=== PATIENT | male | born 1970 | race African-American/Black ===

== ENCOUNTER 2017-03-19 17:36 | Observation (INO) | payer MEDICARE ==
[2017-03-19] MEDS ORDERED: traMADol HCl 50 MG TAB PO PRN (18:24)
[2017-03-19] MEDS ORDERED: Sodium Chloride 0.9% 1,000 ML IV SCH (18:30)
[2017-03-19] MEDS ORDERED: GoLYTELY 4,000 ml Bottle PO SCH (18:30)
[2017-03-19 18:46] VITALS: BMI 33.8
[2017-03-19 19:09] LABS: #Eosinphils 0.2 thou/uL (0.0-0.7); #Lymphocytes 1.9 thou/uL (1.20-3.40); #Monocytes 0.4 thou/uL (0.11-0.59); #Neutrophils 3.6 thou/uL (1.40-6.50); %Basophils 0.6 % (0.0-1.0); %Eosinophils 3.2 % (0.0-10.0); %Lymphocytes 31.5 % (21.0-51.0); %Monocytes 5.9 % (0.0-10.0); %Neutrophils 58.8 % (42.0-75.0); Hemoglobin 12.9 g/dL (14.0-18.0); Mean Corpuscular HGB CONC 32.7 g/dL (32.0-36.0); Mean Corpuscular Hemoglobin 26.7 pg (27.0-31.0); Mean Corpuscular Volume 81.9 fl (80.0-94.0); Mean Platelet Volume 6.6 fL (7.4-10.4); Platelet Count 273 thou/uL (130-400); RBC Distribution Width 13.1 % (11.5-14.5); Red Blood Cell (RBC) Count 4.81 mill/uL (4.70-6.10); White Blood Cell (WBC) Count 6.2 thou/uL (4.8-10.8)
[2017-03-19 19:30] LABS: ALT (SGPT) 22 U/L (8-55); AST (SGOT) 17 U/L (5-34); Albumin 4.1 g/dL (3.5-5.0); Alkaline Phosphatase 101 U/L (40-150); Anion Gap 13 mmol/L (10-20); BUN (Urea Nitrogen) 15 mg/dL (8.9-20.6); Bilirubin, Total 0.4 mg/dL (0.2-1.2); Calc. Creatinine Clearance 128 mL/min (70-130); Calcium 9.5 mg/dL (7.8-10.44); Carbon Dioxide 25 mmol/L (22-29); Chloride 104 mmol/L (98-107); Estimated GFR-MDRD 79; Globulin 3.5 g/dL (2.4-3.5); Glucose 114 mg/dL (70-105); Potassium 4.1 mmol/L (3.5-5.1); Protein, Total 7.6 g/dL (6.0-8.3); Sodium 138 mmol/L (136-145)
[2017-03-19] MEDS: Sodium Chloride 0.45% 1,000 ML IV SCH (20:58)
[2017-03-19] MEDS ORDERED: Allopurinol 100 MG TAB PO SCH (21:00)
[2017-03-19] MEDS ORDERED: Chlorthalidone 25 MG TAB PO SCH (21:00)
[2017-03-19] MEDS ORDERED: Atorvastatin Calcium 40 MG TAB PO SCH (21:00)
--- NOTE | 2017-03-19 23:01 | HP ---
DATE OF CONSULTATION: 03/19/2017 CHIEF COMPLAINT: GI bleed. HISTORY OF PRESENT ILLNESS: This is a 47-year-old -[place] male with a known recent history of colonoscopy by Dr. De Jesus wherein he had 3 polyps removed and this was on . Following this, the patient started back on his aspirin 81 mg and he started noticing that he was having some blood in the stool, bright red blood, sometimes with clots. So, he went to Dr. Tena's office today and he was directly admitted to the hospital for colonoscopy in the morning. The patient denied having any chest pain. No nausea, no vomiting, no diarrhea, no constipation. His bleeding has slowed down, bu t is still in the clots. The patient had a hemoglobin of 12.9 today. The patient has a known histor y of type 2 diabetes mellitus and hypertension, which are well controlled. He was also diagnosed wit h congestive heart failure according to him, but no specific out of blood at this time. He had no hi story of stents placed recently. The patient had no recent hospitalizations. PAST MEDICAL HISTORY: 1. Type 2 diabetes mellitus. 2. Hypertension. 3. History of congestive heart failure, which the records are not available at this time. PAST SURGICAL HISTORY: Has bunionectomy on his right lower feet and has a recent colonoscopy with 3 polyps removed. SOCIAL HISTORY: The patient is not a known smoker. No history of alcohol, no history of illicit tracie g use. FAMILY HISTORY: Patient has significant family history of coronary artery disease in his brothers. Both the brothers at the age of 50s with coronary artery disease and also had a sister who recently. ALLERGIES: No known drug allergies. HOME MEDICATIONS: Home medications have been reconciled and reviewed. Please see the medication lis t. REVIEW OF SYSTEMS: All 12 systems are reviewed with the patient thoroughly and found to be negative at this time except the ones described in the HPI. Constitutional: Weight loss or gain, sense of well-being, ability to conduct usual activities, exerc ise tolerance. Skin/Breast: Rash, itching, changes in hair growth or loss, nail changes, breast lumps, tenderness, swelling, nipple discharge. Eyes: Vision, double vision, tearing, blind spots, pain. ENT/Mouth: Headaches (location, time of onset, duration, precipitating factors), vertigo, lightheade dness, injury. Vision, double vision, tearing, blind spots, pain, nose bleeding, colds, obstruction, discharge, dental difficulties, gingival bleeding, dentures, neck stiffness, pain, tenderness, masses in thyroid or other areas Cardiovascular: Precordial pain, substernal distress, palpitations, syncope, dyspnea on exertion, or thopnea, nocturnal paroxysmal dyspnea, edema, cyanosis, hypertension, heart murmurs, varicosities, ph lebitis, claudication. Respiratory: Pain, shortness of breath, wheezing, stridor, cough, hemoptysis, fever or night sweats. Gastrointestinal: Poor appetite, dysphagia, indigestion, abdominal pain, heartburn, eructation, naus ea, vomiting, hematemesis, jaundice, constipation, or diarrhea, abnormal stools (yaneli-colored, tarry, bloody, greasy, foul smelling), flatulence, hemorrhoids, recent changes in bowel habits. Genitourinary: Urgency, frequency, dysuria, nocturia, hematuria, polyuria, oliguria, unusual (or blaire nge in) color of urine, stones, hesitancy, change in size of stream, dribbling, acute retention or in continence, libido, potency. Musculoskeletal: Pain, swelling, redness or heat of muscles or joints, limitation, of motion, muscul ar weakness, atrophy, cramps. Neurologic/Psychiatric: Convulsions, paralyses, tremor, incoordination, paraesthesias, difficulties with memory of speech, sensory or motor disturbances, or muscular coordination (ataxia, tremor), emot ional problems, anxiety, depression, previous psychiatric care, unusual perceptions, hallucinations. Allergy/Immunologic: Skin rash, anemia, bleeding tendency, polydipsia, polyuria, intolerance to heat or cold. PHYSICAL EXAMINATION: VITAL SIGNS: Blood pressures are 127/66, heart rate is 67, respiratory rate is 18 and saturation 100 %. GENERAL: The patient is moderately built, moderately nourished, does not appear to be in acute distr ess. CARDIOVASCULAR: S1 and S2 normal. No murmurs, rubs or gallops. LUNGS: Bilateral air entry was equal. No wheezing, no crackles. ABDOMEN: Soft and nontender. No guarding, no rebound tenderness. Bowel sounds normal. MUSCULOSKELETAL: No calf tenderness. No pedal edema. No joint tenderness, no joint swelling. SKIN: No cyanosis, no edema, no rash, no pallor. NEUROLOGIC: Cranial examination II-XII intact. No focal deficits were noted. LABORATORY DATA: WBC is 6.8, hemoglobin is 12.1 and hematocrit 39.4. Sodium is 138, potassium 4.1, chloride is 104, bicarbonate is 25 and platelets are 273. ASSESSMENT: 1. Acute lower gastrointestinal bleed secondary to recent polypectomy. 2. Type 2 diabetes mellitus, well controlled. 3. Hypertension, well controlled. 4. Anemia, acute blood loss. PLAN: 1. To keep the patient n.p.o. and patient has been scheduled for colonoscopy in the morning by Dr. Tray dillon. We will continue with the recommendations at this time. The patient's bleeding is not severe at this time, but we will closely monitor and will look for a blood transfusion if the hemoglobin stacy ps to less than 8. 2. Patient has a history of congestive heart failure, but there are no records for it at this time a nd has been told by his district associate judge to continue the aspirin. At this time, we will hold aspirin bec ause of the acute bleeding and will have the patient's follow up with his district associate judge to see if the patient would need to be continued on the aspirin. 3. Hypertension is well controlled. We will restart the home medications following the colonoscopy tomorrow. 4. Deep venous thrombosis prophylaxis. I spent 70 minutes with this patient.
--- NOTE | 2017-03-20 03:54 | CON ---
DATE OF CONSULTATION: 03/19/2017 CHIEF COMPLAINT: Blood in the stool. HISTORY OF PRESENT ILLNESS: Mr. Jordan is a 47-year-old man who underwent surveillance colonoscopy an d EGD by Dr. De Jesus on 03/15/2017. He was found to have 3 moderate sized pedunculated and sessile poly ps in the sigmoid and ascending colon. The polyps were removed by snare cautery polypectomy. Divert iculosis was also noted throughout the colon. He underwent the colonoscopy due to a personal history of polyps and family history of polyps. The patient did well following the colonoscopy until 6:00 t his morning. He developed a red liquidy bloody stool. He had 2 more episodes, so he went onto the [facility] ER and at the [facility], he had a CT scan which was reportedly negative. He marie d hemoglobin of 12.8. He was discharged and presented to GI clinic this afternoon. Since then he marie s had 3 more liquidy red bloody stools with total of 6 so far through the day. He has no abdominal p ain, nausea, vomiting or fever. Of note, he did undergo EGD on 03/15/2017 as well for evaluation of mild dysphagia. He underwent esophageal dilation at that time. He was started on Prilosec. PAST MEDICAL HISTORY: Gastroesophageal reflux disease, personal history of colon polyps, diabetes me llitus, depression, arthritis, hypertension, congestive heart failure. PAST SURGICAL HISTORY: EGD and colonoscopy. FAMILY HISTORY: Negative for GI malignancy. SOCIAL HISTORY: No alcohol, tobacco or drugs. He is and has four children. ALLERGIES: No known drug allergies. MEDICATIONS: Carvedilol 25 mg daily, atorvastatin 80 mg at bedtime, allopurinol 100 mg daily, trama dol 50 mg as needed usually once daily, aspirin 81 mg daily, metformin 1000 mg daily. This was held due to CT contrast that he received at [facility] today. Finally, chlorthalidone 25 mg daily . REVIEW OF SYSTEMS: Negative x10 systems reviewed except as stated in the history of present illness. PHYSICAL EXAMINATION: VITAL SIGNS: Temperature 96.4, blood pressure 124/68, pulse 72. GENERAL: He is in no acute distress, alert and oriented x3. HEENT: Eyes have no scleral icterus. Oropharynx is clear, without lesions. NECK: No cervical or supraclavicular lymphadenopathy. LUNGS: Clear to auscultation bilaterally. HEART: Regular rate and rhythm without murmur. ABDOMEN: Soft, nontender, nondistended. Bowel sounds are present. EXTREMITIES: No lower extremity edema. IMPRESSION: 1. Post-polypectomy hemorrhage. PLAN: 1. Colonoscopy tomorrow. We will follow the trend of the hemoglobin. Bowel prep tonight. 2. Please note the metformin is on hold due to CT scan with IV contrast that he received at [facility] ER this morning.
[2017-03-20] MEDS: Sodium Chloride 0.45% 1,000 ML IV SCH ×2 (04:33→14:03)
[2017-03-20] MEDS ORDERED: Carvedilol 25 MG TAB PO SCH (09:00)
[2017-03-20] MEDS ORDERED: Promethazine HCl 25 MG/ML VIAL SLOW IVP PRN (11:35)
[2017-03-20] MEDS ORDERED: Promethazine HCl 25 MG/ML VIAL IM PRN (11:35)
[2017-03-20] MEDS ORDERED: Ondansetron HCl/PF 4 MG/2 ML Vial IVP PRN (11:35)
--- NOTE | 2017-03-20 11:58 | OP ---
DATE OF PROCEDURE: 03/20/2017 SURGEON: Ronald Thorne M.D. PREOPERATIVE DIAGNOSIS: Suspected post-polypectomy bleeding. POSTOPERATIVE DIAGNOSES: Post-polypectomy bleeding with a visible vessel in the right colon. This w as controlled with 1 Hemoclip and bleeding was controlled, no further bleeding was noted afterwards. RECOMMENDATIONS: We will check H&H and advance diet. If stable, will discharge later today. ANESTHESIA: TIVA. PROCEDURE IN DETAIL: After the patient was informed of the risks, benefits, possible complications o f endoscopy including perforation, bleeding, reactions to medication and aspiration, informed consent was obtained. The patient brought to endoscopy suite where he was sedated in gradual fashion. Once he was comfortable, a rectal examination was performed which revealed fresh blood from the rectum. He remained stable for the procedure. The endoscope was advanced through anal canal, through the col on to the cecum. The colon was irrigated and all old blood removed. A bleeding site identified with a visible vessel with adherent clot indicative of recent bleeding. It was felt to be at high risk f or recurrent bleeding and therefore a Hemoclip was placed across the base of the visible vessel and a ll oozing stopped. This was irrigated and watched for some time. The remainder of the colon was irr igated and cleaned and no other bleeding sites were identified. The colon was then reexamined again the polyp site was relocated and no active bleeding was seen. At this point in time I was satisfied that all bleeding had stopped. The colon was desufflated. The scope was removed. The patient terry ated the procedure well with no complications.
[2017-03-20 13:03] LABS: Hemoglobin 10.7 g/dL (14.0-18.0)
[2017-03-20] MEDS ORDERED: PHENYLEPHRINE-NS 100 MCG/ML 10 ML SYRINGE ONE (14:26)
[2017-03-20] MEDS ORDERED: Propofol 200 MG/20 ML VIAL ONE (14:26)
[2017-03-20 15:43] VITALS: BP 117/60; TEMP 99
--- NOTE | 2017-03-21 01:39 | DIS ---
DATE OF ADMISSION: 03/19/2017 DATE OF DISCHARGE: 03/20/2017 CONDITION AT THE TIME OF DISCHARGE: Stable and improved. DISCHARGE DIAGNOSES: 1. Post-polypectomy gastrointestinal hemorrhage. 2. Mild acute blood loss anemia. 3. Diabetes mellitus type 2. 4. Hypertension. 5. History of congestive heart failure. PRIMARY CARE PHYSICIAN: Mat Darke M.D. PRIMARY ASPHALT MIXER: Willi De Jesus M.D. CONSULTATIONS INHOUSE: Include Gastroenterology, Dr. Tena and Dr. Thorne. PROCEDURES DONE IN THE HOSPITAL: Include colonoscopy which showed post-polypectomy bleeding with a v isible vessel in the right colon. This was hemoclipped and the bleeding was controlled without any s ignificant bleeding afterwards. HISTORY OF PRESENT ILLNESS: Mr. Jordan is a very pleasant 47-year-old -Irish male who under went outpatient colonoscopy by Dr. De Jesus and had polyps removed 3 or 4 days prior to presentation. He started back his aspirin after that and noticed some bright red blood in the stools with clot and pr esented to Dr. Tena's office and was directly admitted to the hospital for this varied reason. Upon presentation, his hemoglobin was 12.9, which is almost at his baseline. He was otherwise hemodynami lobito stable with a blood pressure of 127/66, heart rate of 67. Please see admission history and y sical for further details. HOSPITAL COURSE: The patient was admitted under observation status and he remained hemodynamically s table. GI was consulted and Dr. Tena and Dr. Thorne saw the patient and he underwent repeat colonos copy. He did have post-polypectomy bleeding and a visible blood vessel was hemoclipped which control of the hemorrhage. He did not have any more bleeding since then. His hemoglobin did trend down fro m 12.9 to 10.7 likely due to normal saline that he was receiving in the emergency room. At this time , he is hemodynamically stable without any active bleed and was cleared by Gastroenterology for disch arge as well. He will follow up with Dr. De Jesus as an outpatient. He was seen and examined prior to discharge. PHYSICAL EXAMINATION: Include, VITAL SIGNS: Temperature 99, pulse of 99, respirations 15, saturating 98% on room air, and blood pre ssure 117/60. GENERAL: No acute distress, awake, alert, oriented x3. CHEST: Clear to auscultation bilaterally. ABDOMEN: Soft, nontender, nondistended. CARDIOVASCULAR: Rate and rhythm is regular. DISCHARGE DISPOSITION: Home. Discharge plan was discussed with the patient and his family who verbalized understanding. DISCHARGE MEDICATIONS: Resume home medications as follows: Tramadol as needed, metformin 500 mg chavo ly, bupropion 200 mg daily, Restoril 30 mg at bedtime, omeprazole 40 mg daily, Coreg 25 mg p.o. b.i.d ., and atorvastatin 80 mg at bedtime.
== END 2017-03-20 16:58 | disposition home or self-care (01) ==
LOC: SURG A 17:36 → UNDOADMOB 17:36 → 2SW 17:50
PROVIDERS: ADMIT Internal Medicine; ATTEND Internal Medicine
PROC: 0W3P8ZZ Control Bleeding in Gastrointestinal Tract, Via Natural or Artificial Opening Endoscopic (ICD-10-PCS; principal; 2017-03-20)
DX: K91.840 Postprocedural hemorrhage of a digestive system organ or structure following a digestive system procedure (principal); I11.0 Hypertensive heart disease with heart failure; I50.9 Heart failure, unspecified; E11.9 Type 2 diabetes mellitus without complications; D62 Acute posthemorrhagic anemia; K57.90 Diverticulosis of intestine, part unspecified, without perforation or abscess without bleeding; K21.9 Gastro-esophageal reflux disease without esophagitis; F32.9 Major depressive disorder, single episode, unspecified; M19.90 Unspecified osteoarthritis, unspecified site; Z86.010 Personal history of colon polyps; Z79.82 Long term (current) use of aspirin; Z79.84 Long term (current) use of oral hypoglycemic drugs; Z79.899 Other long term (current) drug therapy; Z98.890 Other specified postprocedural states
CPT/HCPCS: 45382; 80053; 85014; 85018; 85025; 96360; 96361 ×2; G0378; G0379; 36415; J2704

== ENCOUNTER 2021-09-21 07:37 | Outpatient (CLI) | payer MEDICARE ==
[2021-09-21] MEDS ORDERED: Iopamidol 370 76% 100 ML VIAL ONE (09:52)
== END 2021-09-21 07:38 | disposition home or self-care (01) ==
LOC: CT 07:37
PROVIDERS: ATTEND Physician Assistant Medical
DX: K59.00 Constipation, unspecified (principal); K21.9 Gastro-esophageal reflux disease without esophagitis; R10.31 Right lower quadrant pain; K57.30 Diverticulosis of large intestine without perforation or abscess without bleeding; K76.0 Fatty (change of) liver, not elsewhere classified; Z86.010 Personal history of colon polyps
CPT/HCPCS: 74177; Q9967